=== PATIENT | male | born 1935 | race Caucasian/White ===

== ENCOUNTER 2023-09-16 13:09 | Inpatient (IN) ==
[2023-09-16 14:30] LABS: Hematocrit 41.6 % (38-53); Hemoglobin 13.2 g/dL (13.2-16.3); Mean Corpuscular Hgb Conc 31.6 g/dL (31-36); Mean Corpuscular Volume 85.5 fL (80-97); Red Blood Count 4.87 10^6/uL (4.06-5.63); Red Cell Distribution Width 16.1 % (12-17); White Blood Count 10.5 10^3/uL (3.6-10.2)
[2023-09-16 14:39] LABS: Activated Partial Thrombo Time 23.4 seconds (26.0-38.0); INR 1.21 (0.83-1.13)
[2023-09-16 14:57] LABS: High Sens Troponin Baseline 28 pg/mL (<20)
[2023-09-16] MEDS: Acetaminophen IV 1 GM/100ML 1,000 MG/100 ML BAG IV ONE (15:00)
[2023-09-16 15:10] LABS: ABS Lymphocytes 0.8 10^3/uL (1.0-4.8); ABS Monocytes 0.5 10^3/uL (0.0-1.1); ABS Neutrophils 9.1 10^3/uL (1.5-7.6); ABS Nucleated RBC 0.01 10^3/ul; Eosinophil % 0.1 %; Large Platelets Present; Mean Platelet Volume 9.6 fL (7.5-11.2); Nucleated Red Blood Cells % 0.1 %/100WBC (0.0-0.8); Platelet Count 165 10^3/uL (150-450)
[2023-09-16 15:14] LABS: ALT 17 U/L (7-52); Albumin 4.2 g/dL (3.2-5.2); Albumin/Globulin Ratio 1.8 (1-3); Alkaline Phosphatase 115 U/L (35-149); Blood Urea Nitrogen 21 mg/dL (6-24); C Reactive Protein 16.36 mg/L (<8.01); CO2 Carbon Dioxide 24 mmol/L (22-32); Calcium 8.8 mg/dL (8.6-10.3); Chloride 106 mmol/L (101-111); Globulin 2.4 g/dL (2-4); Glucose 90 mg/dL (70-100); Lipase 11 U/L (11.0-82.0); Sodium 141 mmol/L (135-145); Total Bilirubin 0.8 mg/dL (0.2-1.0); Total Protein 6.6 g/dL (6.4-8.9); eGFR CKD-EPI 72.4 (>60)
[2023-09-16 15:15] LABS: Anion Gap 11 mmol/L (2-16)
[2023-09-16 15:57] LABS: High Sensitivity Troponin 1 Hr 31 pg/mL (<20)
[2023-09-16] MEDS ORDERED: Lorazepam PYXIS KEY PRN (16:06)
[2023-09-16] MEDS ORDERED: LORazepam 2 mg VIAL 1 ml IV PUSH ONE (16:06)
[2023-09-16] MEDS ORDERED: LORazepam 2 MG/ML 1 mL Syringe ONE (16:14)
[2023-09-16] MEDS: LORazepam 2 MG/ML 1 mL Syringe IV ONE (16:16)
[2023-09-16] MEDS: Haloperidol 5 mg/ml SDV IV/IM 5 MG/ML AMP IV SLOW PU ONE (16:16)
[2023-09-16 17:14] LABS: Potassium Redraw 4.3 mmol/L (3.5-5.0)
[2023-09-16 17:19] LABS: Urine Appearance Clear; Urine Bacteria Absent /HPF (Absent); Urine Bilirubin Negative (Negative); Urine Blood Trace (Negative); Urine Color Yellow; Urine Glucose 4+ (>=1000 mg/dL) (Negative); Urine Ketones 2+ (Negative); Urine Nitrite Negative (Negative); Urine Protein 1+ (>=30 mg/dL) (Negative); Urine Red Blood Cell 2+(6-10/hpf) /HPF (0-Trace); Urine Urobilinogen Negative (Negative); Urine White Blood Cell Trace(0-5/hpf) /HPF (0-Trace); Urine pH 5.5 (5.0-8.0)
[2023-09-16] MEDS: Iodixanol (CONTRAST) 320 MG/ML 100 ML SDV IV ONE (17:20)
[2023-09-16] MEDS: NS 0.9% 1000 ml BAG 1,000 ML IV ONE (17:54)
[2023-09-16 21:22] LABS: High Sensitivity Troponin 3 Hr 39 pg/mL (<20)
[2023-09-16] MEDS ORDERED: Magnesium Hydroxide LIQ 30 ML UDC PO PRN (23:26)
[2023-09-17] MEDS: Aspirin EC 81 mg TAB.EC (enteric coated) PO SCH (00:12)
[2023-09-17] MEDS: hydrALAZINE 20 mg/ml 1 ML Vial IV IV SLOW PU ONE (01:04)
[2023-09-17] MEDS: Metoprolol Tartrate 5 mg VIAL 5 ml VIAL (1 mg/ml) IV SCH (01:53)
[2023-09-17 02:05] LABS: High Sensitivity Troponin 1 Hr 46 pg/mL (<20)
[2023-09-17 08:00] LABS: High Sensitivity Troponin 1 Hr 40 pg/mL (<20)
[2023-09-17] MEDS ORDERED: HYDROcodone/ACETAMIN 5/325 mg TAB PO PRN (09:31)
[2023-09-17] MEDS: Fluticasone NASAL SPRAY 50MCG 16 gm SPRAY BTL INTRANASAL SCH (10:08)
[2023-09-17] MEDS: CALCITONIN ALT NARE SCH (11:39)
[2023-09-17] MEDS: HYDROcodone/ACETAMIN 5/325 mg TAB PO SCH ×2 (11:54→19:51)
[2023-09-18 07:32] LABS: Calcium 8.8 mg/dL (8.6-10.3); Creatinine, Serum 1.04 mg/dL (0.67-1.17); Magnesium 2.1 mg/dL (1.9-2.7); eGFR CKD-EPI 69.1 (>60)
[2023-09-18 08:24] LABS: ABS Monocytes 0.8 10^3/uL (0.0-1.1); ABS Neutrophils 7.5 10^3/uL (1.5-7.6); ABS Nucleated RBC 0.01 10^3/ul; Eosinophil % 0.4 %; Hematocrit 37.3 % (38-53); Large Platelets Present; Lymphocyte % 10.8 %; Mean Corpuscular Hemoglobin 27.1 pg (27-33); Mean Corpuscular Hgb Conc 32.1 g/dL (31-36); Mean Corpuscular Volume 84.6 fL (80-97); Mean Platelet Volume 8.9 fL (7.5-11.2); Nucleated Red Blood Cells % 0.1 %/100WBC (0.0-0.8); Platelet Count 142 10^3/uL (150-450); Red Blood Count 4.41 10^6/uL (4.06-5.63); Red Cell Distribution Width 16.1 % (12-17); White Blood Count 9.3 10^3/uL (3.6-10.2)
[2023-09-18] MEDS: Lidocaine PATCH 4% TOPICAL PRN (14:18)
[2023-09-18] MEDS: CMC:Calcitonin NASAL(NF) 200 UNITS/SPRAY NASAL.SPR ALT NARE SCH (15:52)
[2023-09-19 06:47] LABS: Hematocrit 39.9 % (38-53); Hemoglobin 12.7 g/dL (13.2-16.3); Mean Corpuscular Hemoglobin 26.8 pg (27-33); Mean Corpuscular Hgb Conc 31.9 g/dL (31-36); Mean Corpuscular Volume 84.2 fL (80-97); Red Blood Count 4.74 10^6/uL (4.06-5.63); Red Cell Distribution Width 16.1 % (12-17); White Blood Count 12.2 10^3/uL (3.6-10.2)
[2023-09-19 07:04] LABS: Creatinine, Serum 1.04 mg/dL (0.67-1.17); Potassium 4.4 mmol/L (3.5-5.0); eGFR CKD-EPI 69.1 (>60)
[2023-09-19 07:27] LABS: Mean Platelet Volume 9.4 fL (7.5-11.2); Platelet Count 160 10^3/uL (150-450)
[2023-09-19 07:28] LABS: ABS Lymphocytes 0.6 10^3/uL (1.0-4.8); ABS Monocytes 0.4 10^3/uL (0.0-1.1); ABS Neutrophils 11.1 10^3/uL (1.5-7.6); ABS Nucleated RBC 0.01 10^3/ul; Anisocytosis 1+; Giant Platelets Present; Large Platelets Present; Nucleated Red Blood Cells % 0.1 %/100WBC (0.0-0.8); Schistocytes 1+
[2023-09-19] MEDS: HYDROcodone/ACETAMIN 5/325 mg TAB PO SCH (21:18)
[2023-09-20 07:04] LABS: Calcium 8.8 mg/dL (8.6-10.3); Creatinine, Serum 2.23 mg/dL (0.67-1.17); Magnesium 2.3 mg/dL (1.9-2.7); Potassium 4.4 mmol/L (3.5-5.0); eGFR CKD-EPI 27.7 (>60)
[2023-09-20] MEDS: Lactated Ringers 1000 ml BAG 1,000 ML IV SCH ×3 (08:15→22:36)
[2023-09-20 08:53] LABS: ABS Basophils 0.1 10^3/uL (0.0-0.1); ABS Lymphocytes 0.9 10^3/uL (1.0-4.8); ABS Monocytes 1.1 10^3/uL (0.0-1.1); Hematocrit 41.6 % (38-53); Mean Corpuscular Hemoglobin 26.6 pg (27-33); Mean Corpuscular Hgb Conc 31.3 g/dL (31-36); Mean Corpuscular Volume 85.1 fL (80-97); Mean Platelet Volume 9.8 fL (7.5-11.2); Platelet Count 157 10^3/uL (150-450); Red Blood Count 4.89 10^6/uL (4.06-5.63); White Blood Count 15.1 10^3/uL (3.6-10.2)
[2023-09-20] MEDS: D5W 1/2 NS 1000 ml BAG 1,000 ML IV SCH (10:08)
[2023-09-20 15:08] LABS: Calcium 8.5 mg/dL (8.6-10.3); Creatinine, Serum 2.94 mg/dL (0.67-1.17); Potassium 4.1 mmol/L (3.5-5.0); eGFR CKD-EPI 19.8 (>60)
[2023-09-20] MEDS: Morphine 2 MG/ML SYRINGE IV ONE (18:21)
[2023-09-20] MEDS ORDERED: Vancomycin per Pharmacy 1 EA NOTE FOLLOW UP PRN (18:24)
[2023-09-20] MEDS ORDERED: Lorazepam PYXIS KEY PRN (18:25)
[2023-09-20] MEDS ORDERED: Zosyn per Pharmacy NOTE FOLLOW UP SCH (19:00)
[2023-09-20] MEDS: LORazepam 2 mg VIAL 1 ml IV PUSH ONE (19:02)
[2023-09-20] MEDS: diazePAM INJ CARPUJECT 5 MG/ML SYRINGE IV ONE (19:13)
[2023-09-20] MEDS ORDERED: Ondansetron ODT 4 mg TAB 4 MG TAB SL PRN (19:34)
[2023-09-20] MEDS ORDERED: Senna TAB 8.6 mg TAB PO PRN (19:34)
[2023-09-20] MEDS ORDERED: Atropine 1% (ORAL/SL) 15 ML BTL SL PRN (19:34)
[2023-09-20] MEDS: ZOSYN 3.375 GM x ONE DOSE over 30 miuntes IV (19:34)
[2023-09-20] MEDS: Vancomycin 1,500 MG in NS 0.9% 250 ml 250 ML IVPB ONE (20:16)
[2023-09-20] MEDS: ZOSYN 3.375 GM Q12H per EXTENDED INFUSION IV SCH (23:57)
[2023-09-21] MEDS: Morphine 2 MG/ML SYRINGE IV PRN (00:02)
[2023-09-21] MEDS: Morphine ORAL CONCENTRATE 5 MG/0.25 ML ORAL.SYRIN SL PRN (09:53)
[2023-09-21] MEDS ORDERED: Senna TAB 8.6 mg TAB PO PRN (11:52)
[2023-09-21 12:25] LABS: Vancomycin Random 19.7 mcg/mL
[2023-09-21 12:27] LABS: Hematocrit 42.7 % (38-53); Hemoglobin 13.9 g/dL (13.2-16.3); Mean Corpuscular Hemoglobin 27.7 pg (27-33); Mean Corpuscular Hgb Conc 32.5 g/dL (31-36); Mean Corpuscular Volume 85.3 fL (80-97); Red Blood Count 5.01 10^6/uL (4.06-5.63); Red Cell Distribution Width 16.7 % (12-17); White Blood Count 23.2 10^3/uL (3.6-10.2)
[2023-09-21] MEDS: Vancomycin Random Level NOTE FOLLOW UP ONE (12:34)
[2023-09-21] MEDS: Enoxaparin 30 MG/0.3 ML SYR SUBCUT SCH (12:41)
[2023-09-21 13:00] LABS: ABS Lymphocytes 0.9 10^3/uL (1.0-4.8); ABS Monocytes 1.1 10^3/uL (0.0-1.1); ABS Neutrophils 21.2 10^3/uL (1.5-7.6); ABS Nucleated RBC 0.02 10^3/ul; Lymphocyte % 3.8 %; Mean Platelet Volume 10.2 fL (7.5-11.2); Nucleated Red Blood Cells % 0.1 %/100WBC (0.0-0.8); Platelet Count 127 10^3/uL (150-450)
[2023-09-21 13:13] LABS: Albumin 3.4 g/dL (3.2-5.2); Albumin/Globulin Ratio 1.4 (1-3); Calcium 8.4 mg/dL (8.6-10.3); Creatinine, Serum 5.14 mg/dL (0.67-1.17); Globulin 2.5 g/dL (2-4); Magnesium 2.2 mg/dL (1.9-2.7); Potassium 5.5 mmol/L (3.5-5.0); Total Bilirubin 0.6 mg/dL (0.2-1.0); Total Protein 5.9 g/dL (6.4-8.9); eGFR CKD-EPI 10.2 (>60)
[2023-09-21] MEDS: Lactated Ringers 1000 ml BAG 1,000 ML IV SCH (18:40)
[2023-09-22] MEDS ORDERED: Vancomycin Random Level NOTE FOLLOW UP ONE (06:00)
[2023-09-22 06:34] LABS: Hematocrit 36.7 % (38-53); Hemoglobin 11.9 g/dL (13.2-16.3); Mean Corpuscular Hemoglobin 27.1 pg (27-33); Mean Corpuscular Hgb Conc 32.4 g/dL (31-36); Mean Corpuscular Volume 83.9 fL (80-97); Red Blood Count 4.38 10^6/uL (4.06-5.63); Red Cell Distribution Width 16.5 % (12-17); White Blood Count 15.5 10^3/uL (3.6-10.2)
[2023-09-22 07:06] LABS: ABS Lymphocytes 0.7 10^3/uL (1.0-4.8); ABS Monocytes 0.8 10^3/uL (0.0-1.1); ABS Neutrophils 13.5 10^3/uL (1.5-7.6); ABS Nucleated RBC 0.02 10^3/ul; Anisocytosis 1+; Eosinophil % 0.1 %; Large Platelets Present; Lymphocyte % 4.7 %; Nucleated Red Blood Cells % 0.1 %/100WBC (0.0-0.8); Platelet Count 113 10^3/uL (150-450); Schistocytes 1+
[2023-09-22 08:28] LABS: Albumin 2.9 g/dL (3.2-5.2); Albumin/Globulin Ratio 1.3 (1-3); Calcium 8.1 mg/dL (8.6-10.3); Creatinine, Serum 4.22 mg/dL (0.67-1.17); Globulin 2.2 g/dL (2-4); Magnesium 2.2 mg/dL (1.9-2.7); Potassium 4.8 mmol/L (3.5-5.0); Total Bilirubin 0.7 mg/dL (0.2-1.0); Total Protein 5.1 g/dL (6.4-8.9); Vancomycin Random 12.9 mcg/mL; eGFR CKD-EPI 12.9 (>60)
[2023-09-22 14:19] VITALS: BP 83/57
[2023-09-22] MEDS ORDERED: Atropine 1% (ORAL/SL) 15 ML BTL SL PRN (14:24)
[2023-09-22] MEDS ORDERED: Ondansetron ODT 4 mg TAB 4 MG TAB SL PRN (14:24)
[2023-09-22] MEDS: Morphine 2 MG/ML SYRINGE IV PRN (16:06)
[2023-09-22] MEDS: Morphine ORAL CONCENTRATE 5 MG/0.25 ML ORAL.SYRIN SL PRN (18:03)
[2023-09-23] MEDS: Morphine ORAL CONCENTRATE 5 MG/0.25 ML ORAL.SYRIN SL PRN (10:35)
== END 2023-09-23 11:25 | disposition home or self-care (01) | DRG 551 ==
LOC: ED 13:09 → EDHOLD 13:09 → MED 09-17 05:48 → SUATTDRO 09-18 15:02
PROVIDERS: ADMIT Hospitalist; ATTEND Internal Medicine